=== PATIENT | female | born 1995 | race African-American/Black ===

== ENCOUNTER 2019-11-17 10:08 | Emergency (ER) | payer BC, OTHER ==
[~2019-11-17] VITALS: Ht 157.5 cm; Wt 63.5 kg
--- NOTE | 2019-11-17 11:30 | NUR ---
BIBS FROM HOME TO ER BED 6. AAOX4. NOT IN RESP DISTRESS, BREATHING EVEN AND UNLABORED. AMBULATORY. CAME IN FOR NIGHT SWEAT AND BODY PAIN. PER PT NIGHT SWEAT HAS BEEN GOING ON SINCE AUGUST. PT REPORTS THAT TODAY HE HAD VOMMITING AND NAUSEA. MD WAS AT THE BEDSIDE FOR EVAL. ORDERS RECEIVED, NOTED AND CARRIED OUT.
--- NOTE | 2019-11-17 11:45 | NUR ---
XRAY AT THE BEDSIDE
--- NOTE | 2019-11-17 12:21 | NUR ---
Patient discharged to home in stable condition. Written and verbal after care instructions given. Patient verbalizes understanding of instruction. Pt ambulatory with a steady gait
[2019-11-17 12:23] VITALS: BP 123/89
== END 2019-11-17 12:23 | disposition home or self-care (01) ==
LOC: ER 10:15
DX: R61 Generalized hyperhidrosis (principal); Z98.890 Other specified postprocedural states
CPT/HCPCS: 71045-TC

== ENCOUNTER 2022-11-13 09:38 | Emergency (ER) | payer BC ==
[~2022-11-13] VITALS: Ht 157.5 cm; Wt 68.0 kg
[~2022-11-13 09:38] MED LIST: LOPE2CAP40 PO; ONDA4TAB5 PO
[2022-11-13 09:45] VITALS: BP 121/80
[2022-11-13] MEDS ORDERED: CLOT12CR TP (10:05)
--- NOTE | 2022-11-13 10:15 | NUR ---
Patient discharged to home in stable condition. Written and verbal after care instructions given. Patient verbalizes understanding of instruction.
== END 2022-11-13 10:16 | disposition home or self-care (01) ==
LOC: ER 09:40
DX: B35.9 Dermatophytosis, unspecified (principal); Z98.890 Other specified postprocedural states; Z79.899 Other long term (current) drug therapy